=== PATIENT | female | born 1950 | race Caucasian/White ===

== ENCOUNTER 2018-10-05 18:45 | Emergency (ER) | payer MEDICARE, BC ==
[~2018-10-05] VITALS: Ht 144.8 cm; Wt 59.0 kg
[2018-10-05 18:55] VITALS: BP 133/86
[2018-10-05] MEDS ORDERED: HYDROcodone/acetaminophen 10/325mg tab PO ONE (21:05)
[2018-10-05] MEDS ORDERED: acetaminophen w/codeine (30MG) #3 tablet PO ONE (21:55)
[2018-10-05] MEDS ORDERED: ibuprofen tablet 400 MG TABLET PO ONE (21:55)
== END 2018-10-05 22:13 | disposition home or self-care (01) ==
LOC: ER 18:46
DX: S13.9XXA Sprain of joints and ligaments of unspecified parts of neck, initial encounter (principal); S80.02XA Contusion of left knee, initial encounter; S09.90XA Unspecified injury of head, initial encounter; G89.29 Other chronic pain; Z88.8 Allergy status to other drugs, medicaments and biological substances; W17.89XA Other fall from one level to another, initial encounter; Y93.23 Activity, snow (alpine) (downhill) skiing, snowboarding, sledding, tobogganing and snow tubing; Y92.89 Other specified places as the place of occurrence of the external cause; Y99.8 Other external cause status
CPT/HCPCS: 70450; 72040; 73030; 73560; 99284

== ENCOUNTER 2019-05-30 14:22 | Observation (INO) | payer MEDICARE, BC ==
[2019-05-28 17:02] LABS: BASOPHILS % (AUTO) 0.6 % (0-1); EOSINOPHILS # (AUTO) 0.2 X10'3 (0-0.9); EOSINOPHILS % (AUTO) 2.2 % (0-6); HEMATOCRIT 38.2 % (35.0-45.0); HEMOGLOBIN 12.8 g/dl (12.0-16.0); LYMPHOCYTES # (AUTO) 2.9 X10'3 (1.1-4.8); LYMPHOCYTES % (AUTO) 38.1 % (21-51); MEAN CORPUSCULAR HGB CONC 33.4 g/dL (33.0-36.5); MEAN CORPUSCULAR VOLUME 92.8 FL (78-98); MEAN PLATELET VOLUME 11.1 FL (7.4-10.4); MONOCYTES # (AUTO) 0.6 X10'3 (0-0.9); NEUTROPHILS # (AUTO) 3.9 X10'3 (1.8-7.7); NEUTROPHILS % (AUTO) 51.1 % (42-75); PLATELET COUNT 236 X10'3 (140-440); RED BLOOD COUNT 4.12 X10'6 (4.20-5.60); RED CELL DISTRIBUTION WIDTH 13.9 % (11.5-14.5); WHITE BLOOD COUNT 7.6 X10'3 (4.5-11.0)
[2019-05-28 17:18] LABS: PARTIAL THROMBOPLASTIN TIME 26 SECONDS (22-32)
[2019-05-28 17:19] LABS: ALBUMIN 3.8 G/DL (3.4-5.0); ANION GAP 9 (8-16); BLOOD UREA NITROGEN 19 MG/DL (7-18); CALCIUM 8.7 MG/DL (8.5-10.1); CHLORIDE 103 MMOL/L (99-107); CREATININE 0.73 MG/DL (0.40-0.90); GLUCOSE 108 MG/DL (70-104); SODIUM 141 MMOL/L (135-145); TOTAL CARBON DIOXIDE 28.8 MMOL/L (24-32); eGFR 79 ML/MIN
[~2019-05-30] VITALS: Ht 147.3 cm; Wt 57.7 kg
[2019-05-30 14:00] VITALS: BP 143/75
[2019-05-30] MEDS ORDERED: normal saline 1,000 ML IV SCH (14:55)
[2019-05-30] MEDS ORDERED: diphenhydrAMINE 25mg capsule PO PRN (14:55)
[2019-05-30] MEDS ORDERED: LORazepam 0.5 MG tablet PO PRN (14:55)
[2019-05-30] MEDS ORDERED: MULT-1085 PO (14:58)
[2019-05-30] MEDS ORDERED: ASPI81TA52 PO (14:58)
[2019-05-30] MEDS ORDERED: LORA-269 PO (14:58)
[2019-05-30] MEDS ORDERED: midazolam 2 mg/2 ml injection ONE (19:59)
[2019-05-30] MEDS ORDERED: LIDOcaine 1% W/epiNEPHrine 1:100,000 20ml vial ONE (19:59)
[2019-05-30] MEDS ORDERED: iohexol 350MG/ML 100ml bottle IV ONE (19:59)
[2019-05-30] MEDS ORDERED: fentaNYL/PF 50MCG/1 ML 2ML syringe ONE (19:59)
[2019-05-30 20:30] VITALS: BP 137/55
--- NOTE | 2019-05-30 20:30 | NUR ---
received from darius diaz accompanied by
[2019-05-30 21:00] VITALS: BP 133/94
[2019-05-30 21:15] VITALS: BP 153/81
[2019-05-30] MEDS ORDERED: ondansetron/PF 4mg/2ml inj IV PRN (21:15)
[2019-05-30] MEDS ORDERED: OXAZEpam 15mg capsule PO PRN (21:20)
[2019-05-30] MEDS ORDERED: proCHLORperazine 10 MG/2 ml inj IV PRN (21:20)
[2019-05-30 21:30] VITALS: BP 136/50
[2019-05-30 21:45] VITALS: BP 124/55
--- NOTE | 2019-05-30 22:30 | NUR ---
dischage instructions given-family verbalized undersanding peripheral iv removed intact, telemetry removed--left via wheelchair accompanied by tech and
== END 2019-05-30 22:40 | disposition home or self-care (01) ==
LOC: SSTAY O 14:22 → PCU 3S 21:10
PROVIDERS: ADMIT Internal Medicine Interventional Cardiology; ATTEND Internal Medicine Interventional Cardiology
DX: R07.2 Precordial pain (principal); I10 Essential (primary) hypertension; E78.00 Pure hypercholesterolemia, unspecified; E78.5 Hyperlipidemia, unspecified; Z79.82 Long term (current) use of aspirin; Z79.899 Other long term (current) drug therapy
CPT/HCPCS: 80048; 85025; 85610; 85730; 93458; C1769; G0378; J1644; J2250; J3010; J7030; Q0163; Q9967; 99152; A4620; A6258

== ENCOUNTER 2020-07-11 20:17 | Emergency (ER) | payer MEDICARE, BC ==
[~2020-07-11] VITALS: Ht 149.9 cm; Wt 61.8 kg
[~2020-07-11 20:17] MED LIST: ASPI81TA52 PO; LORA-269 PO; MULT-1085 PO
[2020-07-11 20:40] VITALS: BP 105/86
[2020-07-11] MEDS ORDERED: acetaminophen 325mg tablet PO ONE (20:45)
== END 2020-07-11 22:08 | disposition home or self-care (01) ==
LOC: MERGE 20:18 → ER 20:18 → EDBD 20:18 → ER 22:08
DX: R05 Cough (principal); R42 Dizziness and giddiness
CPT/HCPCS: 36415; 99283

== ENCOUNTER 2022-03-09 10:51 | Day surgery (SDC) | payer MEDICARE, BC ==
[2022-03-09] VITALS (10 sets, daily range): BP systolic 95–160; BP diastolic 49–72
[~2022-03-09] VITALS: Ht 149.9 cm; Wt 55.1 kg
[2022-03-09] MEDS ORDERED: normal saline 1,000 ML IV SCH (11:20)
[2022-03-09] MEDS ORDERED: LORazepam 0.5 MG tablet PO PRN ×2 (11:20→16:00)
[2022-03-09] MEDS ORDERED: diphenhydrAMINE 25mg capsule PO PRN (11:20)
[2022-03-09] MEDS ORDERED: verapamil 2.5 mg/ml inj IV ONE (11:34)
[2022-03-09] MEDS ORDERED: nitroGLYCERIN-Tridil 50MG/D5W 250 ML IV ONE (11:34)
[2022-03-09] MEDS ORDERED: iohexol 350MG/ML 100ml bottle IV ONE (11:34)
[2022-03-09] MEDS ORDERED: heparin 1,000unit/ml 10ml vial 10 ML ONE (11:34)
[2022-03-09] MEDS ORDERED: LIDOcaine 1% (10mg/ml) 2ml vial ONE (11:34)
[2022-03-09] MEDS ORDERED: midazolam 1 mg/ML 2ml injection ONE ×2 (13:25→13:52)
[2022-03-09] MEDS ORDERED: fentaNYL/PF 50MCG/1 ML 2ML syringe ONE (13:25)
[2022-03-09] MEDS ORDERED: LIDOcaine 1%/PF 5ML 10 MG/ML VIAL ONE (13:34)
[2022-03-09] MEDS ORDERED: hydrALAZINE 20mg/ml inj. IV ONE (14:21)
[2022-03-09] MEDS ORDERED: morphine 2 MG/ML inj. syringe ONE (14:25)
--- NOTE | 2022-03-09 15:00 | NUR ---
Patient complaining of chest pain 05/24. Notified Dr. Bahena. New order for stat EKG.
[2022-03-09] MEDS ORDERED: HYDROcodone/acetaminophen 5mg/325mg tablet PO PRN (15:10)
[2022-03-09] MEDS ORDERED: HYDROcodone/acetaminophen 10/325mg tab PO PRN (15:10)
--- NOTE | 2022-03-09 15:22 | NUR ---
New order for 0.4 mg SL nitro x 1 and 2 mg IV morphine for chest pain per Dr. Bahena.
[2022-03-09] MEDS ORDERED: nitroGLYCERIN 0.4mg SUBLingual tab SL PRN (15:25)
[2022-03-09] MEDS ORDERED: morphine 2 MG/ML inj. syringe IV PRN (15:25)
--- NOTE | 2022-03-09 16:00 | NUR ---
Notified Dr. Bahena that patient still having chest pain 10/10 with no relief after 0.4 mg SL nitro and 2 mg IV morphine. New order for 0.5 mg PO ativan. Will follow up with Dr. Bahena.
--- NOTE | 2022-03-09 17:03 | NUR ---
Notified MD that patient's chest pain has improved after giving PO ativan. Per ok to DC patient at 1800.
--- NOTE | 2022-03-09 17:36 | NUR ---
Notified Dr. Bahena that patient is concerned about discharging after continued episodes of chest pain. No new orders from MD at this time. Per MD OK, to discharge patient.
== END 2022-03-09 18:15 | disposition home or self-care (01) ==
LOC: SSTAY O 10:51
PROVIDERS: ATTEND Student in an Organized Health Care Education/Training Program
DX: R94.30 Abnormal result of cardiovascular function study, unspecified (principal); R07.9 Chest pain, unspecified; E78.5 Hyperlipidemia, unspecified; I10 Essential (primary) hypertension; Z79.899 Other long term (current) drug therapy; Z88.8 Allergy status to other drugs, medicaments and biological substances; Z98.890 Other specified postprocedural states
CPT/HCPCS: 93005; 93458; C1760; C1769; C1894; J0360; J1644; J2250; J2270; J3010; J3490; J7030; Q0163; Q9967; 99152; A4620; A6258